=== PATIENT | male | born 1955 | race Caucasian/White ===

== ENCOUNTER → 2017-01-19 | Outpatient (CLI) | payer SELFPAY ==
[2017-01-19 09:44] LABS: ABSOLUTE EOSINOPHILS # (AUTO) 0.2 10^3/uL (0.0-0.6); ABSOLUTE LYMPHOCYTES (AUTO) 1.9 10^3/uL (0.5-4.7); ABSOLUTE MONOCYTES (AUTO) 0.7 10^3/uL (0.1-1.4); ABSOLUTE NEUT (AUTO) 4.9 10^3/uL (1.7-8.2); BASOPHILS % (AUTO) 0.5 % (0-2); HEMATOCRIT 42.1 % (37.9-51.0); HEMOGLOBIN 14.6 g/dL (13.5-17.0); HGB HCT DIFFERENCE 1.7; LYMPHOCYTES % (AUTO) 24.8 % (13-45); MEAN CORPUSCULAR HEMOGLOBIN 31.3 pg (27.0-33.4); MEAN CORPUSCULAR HGB CONC 34.6 g/dL (32.0-36.0); MEAN CORPUSCULAR VOLUME 90 fl (80-97); MONOCYTES % (AUTO) 8.7 % (3-13); RED BLOOD COUNT 4.66 10^6/uL (4.35-5.55); RED CELL DISTRIBUTION WIDTH 13.2 % (11.5-14.0); WHITE BLOOD COUNT 7.8 10^3/uL (4.0-10.5)
[2017-01-19 10:12] LABS: ALANINE AMINOTRANSFERASE 72 U/L (21-72); ALBUMIN 4.4 g/dL (3.5-5.0); ALKALINE PHOSPHATASE 76 U/L (38-126); ANION GAP 12 (5-19); ASPARTATE AMINO TRANSFERASE 59 U/L (17-59); BILIRUBIN,DIRECT 0.5 mg/dL (0.0-0.4); BILIRUBIN,TOTAL 0.7 mg/dL (0.2-1.3); BLOOD UREA NITROGEN 18 mg/dL (7-20); CALCIUM 9.5 mg/dL (8.4-10.2); CARBON DIOXIDE 29 mmol/L (22-30); CHLORIDE 99 mmol/L (98-107); CHOLESTEROL 167.65 mg/dL (0-200); CREATININE RESULT 0.87 mg/dL (0.52-1.25); Direct HDL 41 mg/dL (>40); GLUCOSE 131 mg/dL (75-110); POTASSIUM 4.1 mmol/L (3.6-5.0); SODIUM 139.5 mmol/L (137-145); TOTAL PROTEIN 7.5 g/dL (6.3-8.2); TRIGLYCERIDES 280 mg/dL (<150)
[2017-01-19 10:23] LABS: DIRECT LDL 79 mg/dL (<100)
--- NOTE | 2017-01-19 13:45 | EKG REPORT ---
SEVERITY:- NORMAL ECG - SINUS RHYTHM : Confirmed by: Peng Pérez MD 19-Jan-2017 13:44:46
== END ==
LOC: OD 08:22
PROVIDERS: ATTEND Nurse Practitioner
DX: I10 Essential (primary) hypertension (principal); E78.2 Mixed hyperlipidemia; R73.09 Other abnormal glucose; S81.801A Unspecified open wound, right lower leg, initial encounter; X58.XXXA Exposure to other specified factors, initial encounter; Y93.9 Activity, unspecified; Y92.9 Unspecified place or not applicable
CPT/HCPCS: 36415; 80053; 80061; 83036; 84443; 85025; 93005; 93010

== ENCOUNTER 2018-10-27 12:44 | Inpatient (IN) | payer SELFPAY ==
--- NOTE | 2018-10-27 13:12 | ER Document Report ---
ED Medical Screen (RME) - General Chief Complaint: Abnormal Lab Results Stated Complaint: ABNORMAL LABS Time Seen by Provider: 10/27/18 13:06 Primary Care Provider: ROCK CLEANING NP-C [Primary Care Provider] - Follow up as needed TRAVEL OUTSIDE OF THE [place] IN LAST 30 DAYS: No - HPI Notes: 10/27/18 13:10 Patient is a 62-year-old male with a history of hypertension, hyperchol esterolemia, gout, GERD who presents complaining of generalized bruising without precipitating event and occasional dizziness. Patient was sent by his family doctor after noticing a platelet count of 4000. He otherwise is feeling well and has been eating and drinking without difficulty. He is urinating normally and having normal bowel movements. No melena or hematochezia. Denies HIGGINS, fever, neck pain, URI, CP, SOB, Abd pain, or rash. I have treated and performed a rapid initial assessment of this patient. A comprehensive ED assessment and evaluation of the patient, analysis of test results and completion of medical decision making process will be conducted by additional ED providers. PHYSICAL EXAMINATION: GENERAL: Well-appearing, well-nourished and in no acute distress. A&Ox4. An swers questions appropriately. LUNGS: Breath sounds clear to auscultation bilaterally and equal. No wheezes rales or rhonchi. HEART: Regular rate and rhythm without murmurs, rubs, gallops. Skin: generalized ecchymosis noted. - Related Data Allergies/Adverse Reactions: Sulfa (Sulfonamide Antibiotics) Allergy (Verified 10/27/18 12:59) Past Medical History Renal/ Medical History: Denies: Hx Peritoneal Dialysis Physical Exam - Vital signs Vitals: Temp Pulse Resp BP Pulse Ox 98.3 F 90 16 147/76 H 98 10/27/18 12:54 10/27/18 12:54 10/27/18 12:54 10/27/18 12:54 10/27/18 12:54 Course - Vital Signs Vital signs: Temp Pulse Resp BP Pulse Ox 98.3 F 90 16 147/76 H 98 10/27/18 12:54 10/27/18 12:54 10/27/18 12:54 10/27/18 12:54 10/27/18 12:54 Doctor's Discharge - Discharge Referrals: BLACK,ROCK, [employer]IMBER-C [Primary Care Provider] - Follow up as needed
--- NOTE | 2018-10-27 13:48 | ER Document Report ---
ED General - General Chief Complaint: Abnormal Lab Results Stated Complaint: ABNORMAL LABS Time Seen by Provider: 10/27/18 13:06 Notes: 62-year-old male to the emergency department chief complaint of low platelet count. Patient is a has been having increased bruises for the last several months. Taking large amounts of ibuprofen for his knee pain. Went to see a regular doctor and they did outpatient labs and referred him here for a panic low platelet count. Patient states that he has not hit his head. Does have some dizziness though. Denies any abdominal pain. Does have some intermittent blood in the stool. Possible blood in the urine. TRAVEL OUTSIDE OF THE [place] IN LAST 30 DAYS: No - HPI Onset/Duration: Gradual Quality of pain: No pain Severity: Mild Pain Level: Denies - Related Data Allergies/Adverse Reactions: Sulfa (Sulfonamide Antibiotics) Allergy (Verified 10/27/18 12:59) Past Medical History - General Information source: Patient - Social History Smoking Status: Unknown if Ever Smoked Frequency of alcohol use: Heavy Drug Abuse: None Lives with: Spouse/Significant other Family History: Reviewed & Not Pertinent Patient has suicidal ideation: No Patient has homicidal ideation: No - Medical History Notes: Hypertension Renal/ Medical History: Denies: Hx Peritoneal Dialysis Review of Systems - Review of Systems Notes: Constitutional: denies: Chills, Diaphoresis, Fever, Malaise, Weakness EENT: denies: Eye discharge, Blurred vision, Tearing, Double vision, Nose congestion, Nose discharge, Throat swelling, Mouth pain Cardiovascular: denies: Palpitations, Heart racing, Orthopnea, Dyspnea, Chest pain Respiratory: denies: Cough, Hurts to breathe, Wheezing, Shortness of breath Gastrointestinal: denies: Abdominal pain, Diarrhea, Nausea, Vomiting, Black stools, bright red blood in stool Genitourinary: denies: Burning, Dysuria, Discharge, Frequency, Flank pain, Hematuria Musculoskeletal: denies: Joint pain, Joint swelling, Muscle pain, Muscle stiffness, back pain Hematologic/Lymphatic: Complaining of increased bruising, easy bleeding, possible low platelets. Neurological/Psychological: denies: Confusion, Dementia, Depression, Loss of consciousness. Some dizziness. Skin: No lesions, no masses, no skin breakdown, no abscesses Physical Exam - Vital signs Vitals: Temp Pulse Resp BP Pulse Ox 98.3 F 90 16 147/76 H 98 10/27/18 12:54 10/27/18 12:54 10/27/18 12:54 10/27/18 12:54 10/27/18 12:54 Interpretation: Normal - General General appearance: Appears well, Alert - HEENT Head: Normocephalic, Atraumatic Eyes: Normal Pupils: PERRL - Respiratory Respiratory status: No respiratory distress Chest status: Nontender Breath sounds: Normal Chest palpation: Normal - Cardiovascular Rhythm: Regular Heart sounds: Normal auscultation Murmur: No - Abdominal Inspection: Normal Distension: No distension Bowel sounds: Normal Tenderness: Nontender Organomegaly: No organomegaly - Back Back: Normal, Nontender - Extremities General upper extremity: Normal inspection, Nontender, Normal color, Normal ROM, Normal temperature General lower extremity: Normal inspection, Nontender, Normal color, Normal ROM, Normal temperature, Normal weight bearing. No: Cholo's sign - Neurological Neuro grossly intact: Yes Cognition: Normal Orientation: AAOx4 Shakir Coma Scale Eye Opening: Spontaneous Shakir Coma Scale Verbal: Oriented [place] Coma Scale Motor: Obeys Commands Shakir Coma Scale Total: 15 Speech: Normal Motor strength normal: LUE, RUE, LLE, RLE Sensory: Normal - Psychological Associated symptoms: Normal affect, Normal mood - Skin Skin Temperature: Warm Skin Moisture: Dry Skin Color: Other - Patient has several petechiae on the lower extremities. Lots of bruises on the arms. Few bruises on the chest and abdomen. Course - Re-evaluation Re-evalutation: 10/27/18 15:39 Laboratory 10/27/18 10/27/18 10/27/18 13:50 13:50 13:50 WBC 10.1 RBC 4.77 Hgb 13.9 Hct 41.2 MCV 86 MCH 29.1 MCHC 33.7 RDW 13.6 Plt Count 4 L* Seg Neutrophils % 77.8 Lymphocytes % 15.6 Monocytes % 5.5 Eosinophils % 0.5 Basophils % 0.6 Absolute Neutrophils 7.9 Absolute Lymphocytes 1.6 Absolute Monocytes 0.6 Absolute Eosinophils 0.1 Absolute Basophils 0.1 PT 12.9 INR 0.93 APTT 26.2 Sodium 139.6 Potassium 4.1 Chloride 101 Carbon Dioxide 24 Anion Gap 15 BUN 21 H Creatinine 0.93 Est GFR ( Amer) > 60 Est GFR (Non-Af Amer) > 60 Glucose 105 Hemoglobin A1c % Calcium 9.4 Total Bilirubin 0.8 Direct Bilirubin 0.3 Neonat Total Bilirubin Not Reportable Neonat Direct Bilirubin Not Reportable Neonat Indirect Bili Not Reportable AST 26 ALT 31 Alkaline Phosphatase 87 Total Protein 7.2 Albumin 4.4 Urine Color Urine Appearance Urine pH Ur Specific [place] Urine Protein Urine Glucose (UA) Urine Ketones Urine Blood Urine Nitrite Urine Bilirubin Urine Urobilinogen Ur Leukocyte Esterase Urine WBC (Auto) Urine RBC (Auto) U Hyaline Cast (Auto) Urine Mucus (Auto) Urine Ascorbic Acid Blood Type Antibody Screen 10/27/18 10/27/18 10/27/18 13:50 13:50 13:50 WBC RBC Hgb Hct MCV MCH MCHC RDW Plt Count Seg Neutrophils % Lymphocytes % Monocytes % Eosinophils % Basophils % Absolute Neutrophils Absolute Lymphocytes Absolute Monocytes Absolute Eosinophils Absolute Basophils PT INR APTT Sodium Potassium Chloride Carbon Dioxide Anion Gap BUN Creatinine Est GFR ( Amer) Est GFR (Non-Af Amer) Glucose Hemoglobin A1c % 5.2 Calcium Total Bilirubin Direct Bilirubin Neonat Total Bilirubin Neonat Direct Bilirubin Neonat Indirect Bili AST ALT Alkaline Phosphatase Total Protein Albumin Urine Color YELLOW Urine Appearance CLEAR Urine pH 5.0 Ur Specific [place] 1.017 Urine Protein NEGATIVE Urine Glucose (UA) NEGATIVE Urine Ketones NEGATIVE Urine Blood MODERATE H Urine Nitrite NEGATIVE Urine Bilirubin NEGATIVE Urine Urobilinogen NEGATIVE Ur Leukocyte Esterase NEGATIVE Urine WBC (Auto) 1 Urine RBC (Auto) 9 U Hyaline Cast (Auto) 1 Urine Mucus (Auto) FEW Urine Ascorbic Acid NEGATIVE Blood Type A POSITIVE Antibody Screen NEGATIVE Head CT 10/27/18 14:36 IMPRESSION: No acute intracranial pathology. EVIDENCE OF ACUTE STROKE: NO. I have spoken to the educational advisor and he thinks patient should be admitted to the hospital for IV steroids. 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 Patient should respond well to IV Solu-Medrol. Hematology will continue to follow. Will consult with hospitalist for admission at this time. - Vital Signs Vital signs: Temp Pulse Resp BP Pulse Ox 98.3 F 90 21 H 128/68 H 98 10/27/18 12:54 10/27/18 12:54 10/27/18 14:00 10/27/18 13:50 10/27/18 14:00 - Laboratory Result Diagrams: 10/27/18 13:50 10/27/18 13:50 Laboratory results interpreted by me: 10/27/18 10/27/18 10/27/18 13:50 13:50 13:50 Plt Count 4 L* BUN 21 H Urine Blood MODERATE H Discharge - Discharge Clinical Impression: Acute ITP Condition: Good Disposition: ADMITTED INPATIENT Admitting Provider: Saundra (Hospitalist) Unit Admitted: Medical Floor
[2018-10-27 14:14] LABS: ABSOLUTE BASOPHILS # (AUTO) 0.1 10^3/uL (0.0-0.2); ABSOLUTE EOSINOPHILS # (AUTO) 0.1 10^3/uL (0.0-0.6); ABSOLUTE LYMPHOCYTES (AUTO) 1.6 10^3/uL (0.5-4.7); ABSOLUTE MONOCYTES (AUTO) 0.6 10^3/uL (0.1-1.4); ABSOLUTE NEUT (AUTO) 7.9 10^3/uL (1.7-8.2); BASOPHILS % (AUTO) 0.6 % (0-2); EOSINOPHILS % (AUTO) 0.5 % (0-6); HEMATOCRIT 41.2 % (37.9-51.0); HEMOGLOBIN 13.9 g/dL (13.5-17.0); LYMPHOCYTES % (AUTO) 15.6 % (13-45); MEAN CORPUSCULAR HEMOGLOBIN 29.1 pg (27.0-33.4); MEAN CORPUSCULAR HGB CONC 33.7 g/dL (32.0-36.0); MEAN CORPUSCULAR VOLUME 86 fl (80-97); MONOCYTES % (AUTO) 5.5 % (3-13); RED BLOOD COUNT 4.77 10^6/uL (4.35-5.55); RED CELL DISTRIBUTION WIDTH 13.6 % (11.5-14.0); SEGMENTED NEUTROPHILS % (AUTO) 77.8 % (42-78); TOTAL CELLS COUNTED % (AUTO) 100 %; WHITE BLOOD COUNT 10.1 10^3/uL (4.0-10.5)
[2018-10-27 14:16] LABS: APPEARANCE,URINE CLEAR; BILIRUBIN,URINE NEGATIVE (NEGATIVE); COLOR,URINE YELLOW; GLUCOSE, URINE NEGATIVE (NEGATIVE); INTERNATIONAL RATION (INR) 0.93; KETONES,URINE NEGATIVE (NEGATIVE); LEUKOCYTE ESTERASE,URINE NEGATIVE (NEGATIVE); NITRITE,URINE NEGATIVE (NEGATIVE); PROTEIN,URINE NEGATIVE (NEGATIVE); PROTHROMBIN TIME 12.9 SEC (11.4-15.4); URINE SPECIFIC GRAVITY 1.017; UROBILINOGEN,URINE NEGATIVE mg/dL (<2.0)
[2018-10-27 14:24] LABS: PARTIAL THROMBOPLASTIN TIME 26.2 SEC (23.5-35.8)
[2018-10-27 14:26] LABS: ALANINE AMINOTRANSFERASE 31 U/L (21-72); ALBUMIN 4.4 g/dL (3.5-5.0); ALKALINE PHOSPHATASE 87 U/L (38-126); ANION GAP 15 (5-19); ASPARTATE AMINO TRANSFERASE 26 U/L (17-59); BILIRUBIN,DIRECT 0.3 mg/dL (0.0-0.4); BILIRUBIN,TOTAL 0.8 mg/dL (0.2-1.3); BLOOD UREA NITROGEN 21 mg/dL (7-20); CALCIUM 9.4 mg/dL (8.4-10.2); CARBON DIOXIDE 24 mmol/L (22-30); CHLORIDE 101 mmol/L (98-107); GLUCOSE 105 mg/dL (75-110); POTASSIUM 4.1 mmol/L (3.6-5.0); SODIUM 139.6 mmol/L (137-145); TOTAL PROTEIN 7.2 g/dL (6.3-8.2)
[2018-10-27 14:52] LABS: PLATELET COUNT 4 10^3/uL (150-450)
--- NOTE | 2018-10-27 15:08 | RADIOLOGY REPORT (SQ) ---
EXAM DESCRIPTION: CT HEAD WITHOUT COMPLETED DATE/TIME: 10/27/2018 2:59 pm REASON FOR STUDY: Dizziness with thrombocytopenia COMPARISON: None. TECHNIQUE: Axial images acquired through the brain without intravenous contrast. Images reviewed wi th bone, brain and subdural windows. Additional sagittal and coronal reconstructions were generated. Images stored on PACS. All CT scanners at this facility use dose modulation, iterative reconstruction, and/or weight based d osing when appropriate to reduce radiation dose to as low as reasonably achievable (ALARA). [facility]: Dose Right [facility]: CareDose [facility]: Dose Right [facility]: Teradose 4D [facility]: Smart Dash RADIATION DOSE: CT Rad equipment meets quality standard of care and radiation dose reduction techniq ues were employed. CTDIvol: 53.2 mGy. DLP: 1044 mGy-cm. mGy. LIMITATIONS: None. FINDINGS: VENTRICLES: Normal size and contour. CEREBRUM: No masses. No hemorrhage. No midline shift. No evidence for acute infarction. Normal gra y/white matter differentiation. No areas of low density in the white matter. CEREBELLUM: No masses. No hemorrhage. No alteration of density. No evidence for acute infarction. EXTRAAXIAL SPACES: No fluid collections. No masses. ORBITS AND GLOBE: No intra- or extraconal masses. Normal contour of globe without masses. CALVARIUM: No fracture. PARANASAL SINUSES: No fluid or mucosal thickening. SOFT TISSUES: No mass or hematoma. OTHER: No other significant finding. IMPRESSION: No acute intracranial pathology. EVIDENCE OF ACUTE STROKE: NO. COMMENT: Quality ID # [id number]: Final reports with documentation of one or more dose reduction techniques (e.g., Automated exposure control, adjustment of the mA and/or kV according to patient size, use of iterative reconstruction technique) TECHNICAL DOCUMENTATION: JOB ID: [id number] [employer] All Rights Reserved Reading location - IP/workstation name: [email or web address]
[2018-10-27] MEDS ORDERED: ALBUTEROL SULFATE 0.083% NEB 2.5 MG/3 ML AMPUL NEB PRN (16:58)
[2018-10-27] MEDS ORDERED: ACETAMINOPHEN 325 MG TABLET PO PRN (16:58)
[2018-10-27] MEDS ORDERED: MAG HYDROX/AL HYDROX/SIMETH SUSP 30 ML UDCUP PO PRN (16:58)
[2018-10-27] MEDS ORDERED: ONDANSETRON HCL INJ/PF 4 MG/2 ML SDV IV PRN (16:58)
[2018-10-27] MEDS ORDERED: MAGNESIUM HYDROXIDE SUSP 30 ML UDCUP PO PRN (16:58)
[2018-10-27] MEDS ORDERED: DIAZEPAM 5 MG TABLET PO PRN (17:03)
[2018-10-27] MEDS ORDERED: HYDRALAZINE HCL INJ/PF 20 MG/1 ML SDV IV PRN (17:03)
[2018-10-27] MEDS: METHYLPREDNISOLONE INJ 125 MG/2 ML SDV IV SCH ×2 (17:07→18:14)
--- NOTE | 2018-10-27 17:23 | PDOC H&P ---
History of Present Illness Admission Date/PCP: 10/27/18 15:59 MICHEAL MONACO Patient complains of: abdnormal labs History of Present Illness: CRISTIAN BOYD is a 62 year old male with a past medical history of hypertension, hyperlipidemia, GERD, gout, obesity, and alcohol dependence who presents to the emergency department today with report of abnormal labs; patient had routine lab work drawn at his primary care provider's office. He was contacted today and told to report to the emergency department due to low platelets. On presentation to the emergency department the patient was found to have stable vital signs, Hemoglobin 13.9/hematocrit 41.2, and platelet count of 4 (platelet count at PCP office 5, repeat 4), normal coags, unremarkable chemistry, and urinalysis positive for moderate blood. Head CT is benign. Emergency department provider spoke with Dr. Estrada who advised against platelet transfusion at this time as this can paradoxically worsen ITP; instead advises Solu-Medrol 60 mg twice daily. Patient is referred to the hospitalist service for admission and management of the above-stated complaints with hematology consulting. Past Medical History Cardiac Medical History: Reports: Hyperlipidema, Hypertension Denies: Coronary Artery Disease, Myocardial Infarction Pulmonary Medical History: Reports: None EENT Medical History: Reports: None Neurological Medical History: Reports: None Endocrine Medical History: Reports: Obesity Renal/ Medical History: Reports: None Malignancy Medical History: Reports: None GI Medical History: Reports: Gastroesophageal Reflux Disease Musculoskeltal Medical History: Reports: Gout Skin Medical History: Reports: None Psychiatric Medical History: Reports: Alcohol Dependency Traumatic Medical History: Reports: None Hematology: Reports: None Infectious Medical History: Reports: None Past Surgical History Past Surgical History: Reports: Cholecystectomy Social History Information Source: Patient Lives with: Spouse/Significant other Smoking Status: Never Smoker Frequency of Alcohol Use: Heavy Hx Recreational Drug Use: No Drugs: None Hx Prescription Drug Abuse: No - Advance Directive Resuscitation Status: Full Code Surrogate healthcare decision maker:: Patient's . Family History Family History: Reviewed & Not Pertinent, Malignancy - : Parental Family History Reviewed: Yes Children Family History Reviewed: Yes Sibling(s) Family History Reviewed.: Yes Medication/Allergy Allergies/Adverse Reactions: Sulfa (Sulfonamide Antibiotics) Allergy (Verified 10/27/18 12:59) Review of Systems Constitutional: ABSENT: chills, fever(s), headache(s), weight gain, weight loss Eyes: ABSENT: visual disturbances Ears: ABSENT: hearing changes Cardiovascular: ABSENT: chest pain, dyspnea on exertion, edema, orthropnea, palpitations Respiratory: ABSENT: cough, hemoptysis Gastrointestinal: ABSENT: abdominal pain, constipation, diarrhea, hematemesis, hematochezia, nausea, vomiting Genitourinary: ABSENT: dysuria, hematuria Musculoskeletal: ABSENT: joint swelling Integumentary: PRESENT: other - Easily bruises. ABSENT: rash, wounds Neurological: ABSENT: abnormal gait, abnormal speech, confusion, dizziness, focal weakness, syncope Psychiatric: ABSENT: anxiety, depression, homidical ideation, suicidal ideation Endocrine: ABSENT: cold intolerance, heat intolerance, polydipsia, polyuria Hematologic/Lymphatic: ABSENT: easy bleeding, easy bruising Physical Exam Vital Signs: Temp Pulse Resp BP Pulse Ox 98.1 F 90 19 120/83 97 10/27/18 16:58 10/27/18 12:54 10/27/18 16:58 10/27/18 16:58 10/27/18 16:58 Intake & Output 10/26/18 10/27/18 10/28/18 06:59 06:59 06:59 Weight 120.9 kg General appearance: PRESENT: no acute distress, cooperative - Pleasant, morbidly obese, well-developed, well-nourished Head exam: PRESENT: atraumatic, normocephalic Eye exam: PRESENT: conjunctiva pink, EOMI, PERRLA. ABSENT: scleral icterus Ear exam: PRESENT: normal external ear exam Mouth exam: PRESENT: moist, tongue midline Neck exam: ABSENT: carotid bruit, JVD, lymphadenopathy, thyromegaly Respiratory exam: PRESENT: clear to auscultation samantha, symmetrical, unlabored. ABSENT: rales, rhonchi, wheezes Cardiovascular exam: PRESENT: RRR, +S1, +S2. ABSENT: diastolic murmur, rubs, systolic murmur Pulses: PRESENT: normal dorsalis pedis pul Vascular exam: PRESENT: normal capillary refill GI/Abdominal exam: PRESENT: normal bowel sounds, soft. ABSENT: distended, guard ing, mass, organolmegaly, rebound, tenderness Rectal exam: PRESENT: deferred Extremities exam: PRESENT: full ROM. ABSENT: calf tenderness, clubbing, pedal edema Neurological exam: PRESENT: alert, awake, oriented to person, oriented to place, oriented to time, oriented to situation, CN II-XII grossly intact. ABSENT: motor sensory deficit Psychiatric exam: PRESENT: appropriate affect, normal mood. ABSENT: homicidal ideation, suicidal ideation Skin exam: PRESENT: dry, intact, warm, other - Scattered petechia and ecchymosis to all extremities; none noted to trunk or back. ABSENT: cyanosis, rash Results Laboratory Results: 10/27/18 13:50 10/27/18 13:50 10/27/18 10/27/18 10/27/18 13:50 13:50 13:50 WBC 10.1 RBC 4.77 Hgb 13.9 Hct 41.2 MCV 86 MCH 29.1 MCHC 33.7 RDW 13.6 Plt Count 4 L* Seg Neutrophils % 77.8 Lymphocytes % 15.6 Monocytes % 5.5 Eosinophils % 0.5 Basophils % 0.6 Absolute Neutrophils 7.9 Absolute Lymphocytes 1.6 Absolute Monocytes 0.6 Absolute Eosinophils 0.1 Absolute Basophils 0.1 Sodium 139.6 Potassium 4.1 Chloride 101 Carbon Dioxide 24 Anion Gap 15 BUN 21 H Creatinine 0.93 Est GFR ( Amer) > 60 Est GFR (Non-Af Amer) > 60 Glucose 105 Calcium 9.4 Total Bilirubin 0.8 AST 26 ALT 31 Alkaline Phosphatase 87 Total Protein 7.2 Albumin 4.4 Urine Color Urine Appearance Urine pH Ur Specific [place] Urine Protein Urine Glucose (UA) Urine Ketones Urine Blood Urine Nitrite Ur Leukocyte Esterase Urine WBC (Auto) Urine RBC (Auto) Blood Type A POSITIVE Antibody Screen NEGATIVE 10/27/18 13:50 WBC RBC Hgb Hct MCV MCH MCHC RDW Plt Count Seg Neutrophils % Lymphocytes % Monocytes % Eosinophils % Basophils % Absolute Neutrophils Absolute Lymphocytes Absolute Monocytes Absolute Eosinophils Absolute Basophils Sodium Potassium Chloride Carbon Dioxide Anion Gap BUN Creatinine Est GFR ( Amer) Est GFR (Non-Af Amer) Glucose Calcium Total Bilirubin AST ALT Alkaline Phosphatase Total Protein Albumin Urine Color YELLOW Urine Appearance CLEAR Urine pH 5.0 Ur Specific [place] 1.017 Urine Protein NEGATIVE Urine Glucose (UA) NEGATIVE Urine Ketones NEGATIVE Urine Blood MODERATE H Urine Nitrite NEGATIVE Ur Leukocyte Esterase NEGATIVE Urine WBC (Auto) 1 Urine RBC (Auto) 9 Blood Type Antibody Screen Impressions: Head CT 10/27/18 14:36 IMPRESSION: No acute intracranial pathology. EVIDENCE OF ACUTE STROKE: NO. Assessment and Plan - Diagnosis (1) Acute ITP Is this a current diagnosis for this admission?: Yes Plan: The patient is admitted to the medical floor on fall precautions; advised bed rest with commode privileges. Patient is asked to notify staff prior to getting out of bed so that they can be present in case of need for assistance. Hematology is consulted; appreciate Dr. Estrada's assistance. Begin IV Solu-Medrol 60 mg twice daily. Transfuse for active bleeding; patient has been typed and screened. (2) Thrombocytopenia Is this a current diagnosis for this admission?: Yes Plan: Secondary #1; management as above. (3) Hypertension Qualifiers: Hypertension type: essential hypertension Qualified Code(s): I10 - Essential (primary) hypertension Is this a current diagnosis for this admission?: Yes Plan: Patient endorses a history of hypertension. Cardiac diet. We will resume home medication regiment once reconciled. IV hydralazine as needed for blood pressure control. (4) Hyperlipidemia Is this a current diagnosis for this admission?: Yes Plan: Patient endorses history of hyperlipidemia. Cardiac diet. Resume home atorvastatin once reconciled. (5) Alcohol dependence Qualifiers: Substance use status: uncomplicated Qualified Code(s): F10.20 - Alcohol dependence, uncomplicated Is this a current diagnosis for this admission?: Yes Plan: Patient reports that he drinks 2 tumblers of whiskey daily. He denies any history of withdrawal. He declines to be provided beer. Will place on multivitamin, folic acid, and thiamine supplement. P.o. Valium as needed for anxiety/agitation/withdrawal symptoms. - Time Time Spent with patient: 35 or more minutes Medications reviewed and adjusted accordingly: Yes Anticipated discharge: Home
[2018-10-27] MEDS: TEMAZEPAM 7.5 MG CAPSULE PO SCH (21:41)
[2018-10-28 05:27] LABS: HEMATOCRIT 40.6 % (37.9-51.0); HEMOGLOBIN 13.7 g/dL (13.5-17.0); MEAN CORPUSCULAR HEMOGLOBIN 29.1 pg (27.0-33.4); MEAN CORPUSCULAR HGB CONC 33.8 g/dL (32.0-36.0); MEAN CORPUSCULAR VOLUME 86 fl (80-97); RED BLOOD COUNT 4.71 10^6/uL (4.35-5.55); RED CELL DISTRIBUTION WIDTH 13.3 % (11.5-14.0); WHITE BLOOD COUNT 8.8 10^3/uL (4.0-10.5)
[2018-10-28 05:53] LABS: PLATELET COUNT 7 10^3/uL (150-450)
[2018-10-28] MEDS: PANTOPRAZOLE SODIUM 20 MG TABLET.DR PO SCH (05:56)
[2018-10-28] MEDS: DOCUSATE SODIUM 100 MG CAPSULE PO SCH (10:09)
[2018-10-28] MEDS: MULTIVITAMIN TABLET PO SCH (10:10)
[2018-10-28] MEDS: LISINOPRIL 10 MG TABLET PO SCH (10:11)
[2018-10-28] MEDS: METHYLPREDNISOLONE INJ 125 MG/2 ML SDV IV SCH ×3 (10:11→17:12)
[2018-10-28] MEDS: THIAMINE HCL 100 MG TABLET PO SCH (10:11)
[2018-10-28] MEDS: FOLIC ACID 1 MG TABLET PO SCH (10:11)
--- NOTE | 2018-10-28 10:37 | PDOC PROGRESS REPORT ---
Subjective Progress Note for:: 10/28/18 Subjective:: This is 62 years old male patient with past medical history of hypertension, hyperlipidemia, morbid obesity and alcohol dependence referred from his PCP office for abnormal lab. His blood drawn for routine basic lab work revealed platelet count of 4. Patient denies any GI bleeding no hematuria. But he has intermittent bleeding under his skin. On examination he also has large ecchymosis over his left deltoid area. His other blood elements are within normal limits. His platelet count slightly increased to 7. Patient has been on Solu-Medrol. Dr. Hall is going to evaluate him. Reason For Visit: THROMBOCYTOPENIA Physical Exam Vital Signs: Temp Pulse Resp BP Pulse Ox 98.6 F 76 17 122/55 L 98 10/28/18 00:00 10/28/18 00:00 10/28/18 00:00 10/28/18 00:00 10/28/18 09:32 Intake & Output 10/27/18 10/28/18 10/29/18 06:59 06:59 06:59 Weight 123 kg General appearance: PRESENT: morbidly obese Head exam: PRESENT: atraumatic, normocephalic Eye exam: PRESENT: conjunctiva pink, EOMI, PERRLA. ABSENT: scleral icterus Ear exam: PRESENT: normal external ear exam Mouth exam: PRESENT: moist, tongue midline Neck exam: ABSENT: carotid bruit, JVD, lymphadenopathy, thyromegaly Respiratory exam: PRESENT: clear to auscultation samantha. ABSENT: rales, rhonchi, wheezes Cardiovascular exam: PRESENT: RRR. ABSENT: diastolic murmur, rubs, systolic murmur Pulses: PRESENT: normal dorsalis pedis pul Vascular exam: PRESENT: normal capillary refill GI/Abdominal exam: PRESENT: normal bowel sounds, soft. ABSENT: distended, guarding, mass, organolmegaly, rebound, tenderness Rectal exam: PRESENT: deferred Extremities exam: PRESENT: full ROM. ABSENT: calf tenderness, clubbing, pedal edema Neurological exam: PRESENT: alert, awake, oriented to person, oriented to place, oriented to time, oriented to situation, CN II-XII grossly intact. ABSENT: motor sensory deficit Psychiatric exam: PRESENT: appropriate affect, normal mood. ABSENT: homicidal ideation, suicidal ideation Skin exam: PRESENT: dry, intact, warm. ABSENT: cyanosis, rash Results Laboratory Results: 10/28/18 05:10 10/27/18 13:50 10/27/18 10/27/18 10/27/18 13:50 13:50 13:50 WBC 10.1 RBC 4.77 Hgb 13.9 Hct 41.2 MCV 86 MCH 29.1 MCHC 33.7 RDW 13.6 Plt Count 4 L* Seg Neutrophils % 77.8 Lymphocytes % 15.6 Monocytes % 5.5 Eosinophils % 0.5 Basophils % 0.6 Absolute Neutrophils 7.9 Absolute Lymphocytes 1.6 Absolute Monocytes 0.6 Absolute Eosinophils 0.1 Absolute Basophils 0.1 Sodium 139.6 Potassium 4.1 Chloride 101 Carbon Dioxide 24 Anion Gap 15 BUN 21 H Creatinine 0.93 Est GFR ( Amer) > 60 Est GFR (Non-Af Amer) > 60 Glucose 105 Calcium 9.4 Total Bilirubin 0.8 AST 26 ALT 31 Alkaline Phosphatase 87 Total Protein 7.2 Albumin 4.4 Urine Color Urine Appearance Urine pH Ur Specific [place] Urine Protein Urine Glucose (UA) Urine Ketones Urine Blood Urine Nitrite Ur Leukocyte Esterase Urine WBC (Auto) Urine RBC (Auto) Blood Type A POSITIVE Antibody Screen NEGATIVE 10/27/18 10/28/18 13:50 05:10 WBC 8.8 RBC 4.71 Hgb 13.7 Hct 40.6 MCV 86 MCH 29.1 MCHC 33.8 RDW 13.3 Plt Count 7 L* Seg Neutrophils % Lymphocytes % Monocytes % Eosinophils % Basophils % Absolute Neutrophils Absolute Lymphocytes Absolute Monocytes Absolute Eosinophils Absolute Basophils Sodium Potassium Chloride Carbon Dioxide Anion Gap BUN Creatinine Est GFR ( Amer) Est GFR (Non-Af Amer) Glucose Calcium Total Bilirubin AST ALT Alkaline Phosphatase Total Protein Albumin Urine Color YELLOW Urine Appearance CLEAR Urine pH 5.0 Ur Specific [place] 1.017 Urine Protein NEGATIVE Urine Glucose (UA) NEGATIVE Urine Ketones NEGATIVE Urine Blood MODERATE H Urine Nitrite NEGATIVE Ur Leukocyte Esterase NEGATIVE Urine WBC (Auto) 1 Urine RBC (Auto) 9 Blood Type Antibody Screen Impressions: Head CT 10/27/18 14:36 IMPRESSION: No acute intracranial pathology. EVIDENCE OF ACUTE STROKE: NO. Assessment and Plan - Diagnosis (1) Idiopathic thrombocytopenia Is this a current diagnosis for this admission?: Yes Plan: Most probably acute thrombocytopenia. Platelet count in February 2018 was 200,000. (2) Hypertension Qualifiers: Hypertension type: essential hypertension Qualified Code(s): I10 - Essential (primary) hypertension Is this a current diagnosis for this admission?: Yes Plan: I will review this medication and adjust accordingly. (3) Hyperlipidemia Qualifiers: Hyperlipidemia type: unspecified Qualified Code(s): E78.5 - Hyperlipidemia, unspecified Is this a current diagnosis for this admission?: Yes Plan: I will check his lipid panel. (4) Morbid obesity Is this a current diagnosis for this admission?: Yes Plan: Patient encouraged and counseled to do lifestyle modifications and form of h ealthy diet regular exercise and weight loss and he voiced agreement.
[2018-10-28] MEDS ORDERED: (PENDING PHARMACY ID) (Lisinopril [Prinivil] 20 MG) PO SCH (10:45)
[2018-10-28] MEDS: HYDROCHLOROTHIAZIDE 25 MG TABLET PO SCH (11:12)
[2018-10-28] MEDS: METOPROLOL SUCCINATE 25 MG TAB.SR.24H PO SCH (11:12)
--- NOTE | 2018-10-28 11:19 | PDOC CONSULTATION ---
Consultation Consult Date: 10/28/18 Attending physician:: MÓNICA SANDY Provider Consulted: KAELYN ARGUETA Consult reason:: Thrombocytopenia History of Present Illness Admission Date/PCP: 10/27/18 15:59 MICHEAL MONACO Patient complains of: Bruising, petechia History of Present Illness: CRISTIAN BOYD is a 62 year old male with several month history of bruising and petechiae, ultimately patient went to his PCP who did CBC ended up with platelet count of 11. Patient was recommended to come to the ED. Here his platelet count was 4. I was called about him and recommended that he be admitted to [facility] with initiation of high-dose steroids. He has been on Solu-Medrol 60 mg twice daily which would be equivalent of 1 mg/kg of oral prednisone. Today's pill count is 7. He is not having active bleeding although he did complain of some hematochezia over the last few months. He is fatigued. Of note, he tells me he is borderline diabetic. Therefore I initiated Accu-Cheks to start tomorrow. Past Medical History Cardiac Medical History: Reports: Hyperlipidema, Hypertension Denies: Coronary Artery Disease, Myocardial Infarction Pulmonary Medical History: Reports: None EENT Medical History: Reports: None Neurological Medical History: Reports: None Endocrine Medical History: Reports: Obesity Renal/ Medical History: Reports: None Malignancy Medical History: Reports: None GI Medical History: Reports: Gastroesophageal Reflux Disease Musculoskeltal Medical History: Reports: Gout Skin Medical History: Reports: None Psychiatric Medical History: Reports: Alcohol Dependency Denies: Depression Traumatic Medical History: Reports: None Hematology: Reports: None Infectious Medical History: Reports: None Past Surgical History Past Surgical History: Reports: Cholecystectomy Social History Information Source: Patient Lives with: Spouse/Significant other Smoking Status: Never Smoker Frequency of Alcohol Use: Heavy Hx Recreational Drug Use: No Drugs: None Hx Prescription Drug Abuse: No - Advance Directive Resuscitation Status: Full Code Family History Family History: Reviewed & Not Pertinent, Malignancy - : Parental Family History Reviewed: Yes Children Family History Reviewed: Yes Sibling(s) Family History Reviewed.: Yes Medication/Allergy Home Medications: Amlodipine Besylate [Norvasc 10 mg Tablet] 10 mg PO DAILY 10/27/18 Atorvastatin Calcium [Lipitor 40 mg Tablet] 40 mg PO QHS 10/27/18 Hydrochlorothiazide [Hydrodiuril 25 mg Tablet] 25 mg PO QAM 10/27/18 Indomethacin [Indocin 25 Mg Capsule] 25 mg PO DAILYP PRN 10/27/18 Lisinopril [Prinivil] 20 mg PO DAILY 10/27/18 Metoprolol Succinate [Toprol Xl] 25 mg PO DAILY 10/27/18 RX: Omeprazole 20 mg PO DAILY 10/27/18 Allergies/Adverse Reactions: Sulfa (Sulfonamide Antibiotics) Allergy (Verified 10/27/18 12:59) Review of Systems Constitutional: PRESENT: fatigue Gastrointestinal: ABSENT: abdominal pain, constipation, diarrhea, hematemesis, hematochezia, nausea, vomiting Musculoskeletal: ABSENT: joint swelling Integumentary: ABSENT: rash, wounds Neurological: ABSENT: abnormal gait, abnormal speech, confusion, dizziness, focal weakness, syncope Psychiatric: ABSENT: anxiety, depression, homidical ideation, suicidal ideation Hematologic/Lymphatic: PRESENT: easy bleeding, easy bruising Physical Exam Vital Signs: Temp Pulse Resp BP Pulse Ox 98.6 F 76 17 122/55 L 98 10/28/18 00:00 10/28/18 00:00 10/28/18 00:00 10/28/18 00:00 10/28/18 09:32 Intake & Output 10/27/18 10/28/18 10/29/18 06:59 06:59 06:59 Weight 123 kg General appearance: PRESENT: no acute distress Mouth exam: PRESENT: moist, tongue midline Neck exam: ABSENT: carotid bruit, JVD, lymphadenopathy, thyromegaly Respiratory exam: PRESENT: clear to auscultation samantha. ABSENT: rales, rhonchi, wheezes Cardiovascular exam: PRESENT: RRR. ABSENT: diastolic murmur, rubs, systolic murmur GI/Abdominal exam: PRESENT: normal bowel sounds, soft. ABSENT: distended, guarding, mass, organolmegaly, rebound, tenderness Rectal exam: PRESENT: deferred Gentrourinary exam: PRESENT: ecchymosis Neurological exam: PRESENT: alert, awake, oriented to person, oriented to place, oriented to time, oriented to situation, CN II-XII grossly intact. ABSENT: motor sensory deficit Skin exam: PRESENT: petechiae Results Laboratory Results: 10/28/18 05:10 10/27/18 13:50 10/27/18 10/27/18 10/27/18 13:50 13:50 13:50 WBC 10.1 RBC 4.77 Hgb 13.9 Hct 41.2 MCV 86 MCH 29.1 MCHC 33.7 RDW 13.6 Plt Count 4 L* Seg Neutrophils % 77.8 Lymphocytes % 15.6 Monocytes % 5.5 Eosinophils % 0.5 Basophils % 0.6 Absolute Neutrophils 7.9 Absolute Lymphocytes 1.6 Absolute Monocytes 0.6 Absolute Eosinophils 0.1 Absolute Basophils 0.1 Sodium 139.6 Potassium 4.1 Chloride 101 Carbon Dioxide 24 Anion Gap 15 BUN 21 H Creatinine 0.93 Est GFR ( Amer) > 60 Est GFR (Non-Af Amer) > 60 Glucose 105 Calcium 9.4 Total Bilirubin 0.8 AST 26 ALT 31 Alkaline Phosphatase 87 Total Protein 7.2 Albumin 4.4 Urine Color Urine Appearance Urine pH Ur Specific [place] Urine Protein Urine Glucose (UA) Urine Ketones Urine Blood Urine Nitrite Ur Leukocyte Esterase Urine WBC (Auto) Urine RBC (Auto) Blood Type A POSITIVE Antibody Screen NEGATIVE 10/27/18 10/28/18 13:50 05:10 WBC 8.8 RBC 4.71 Hgb 13.7 Hct 40.6 MCV 86 MCH 29.1 MCHC 33.8 RDW 13.3 Plt Count 7 L* Seg Neutrophils % Lymphocytes % Monocytes % Eosinophils % Basophils % Absolute Neutrophils Absolute Lymphocytes Absolute Monocytes Absolute Eosinophils Absolute Basophils Sodium Potassium Chloride Carbon Dioxide Anion Gap BUN Creatinine Est GFR ( Amer) Est GFR (Non-Af Amer) Glucose Calcium Total Bilirubin AST ALT Alkaline Phosphatase Total Protein Albumin Urine Color YELLOW Urine Appearance CLEAR Urine pH 5.0 Ur Specific [place] 1.017 Urine Protein NEGATIVE Urine Glucose (UA) NEGATIVE Urine Ketones NEGATIVE Urine Blood MODERATE H Urine Nitrite NEGATIVE Ur Leukocyte Esterase NEGATIVE Urine WBC (Auto) 1 Urine RBC (Auto) 9 Blood Type Antibody Screen Impressions: Head CT 10/27/18 14:36 IMPRESSION: No acute intracranial pathology. EVIDENCE OF ACUTE STROKE: NO. Assessment & Plan - Diagnosis (1) Acute ITP Is this a current diagnosis for this admission?: Yes Plan: Most likely acute ITP, initiated high-dose steroids. We should see an improvement in platelet count probably by Tuesday. At that time as long as its above 20 and stabilized we can discharge him home and follow his platelet counts as an outpatient. If he does respond to high-dose steroids then ultimately he will need a 1 mg/kg oral prednisone prescription for a 3-week supply to ensure we could then begin tapering once his platelet counts are above 100. He does have history of borderline diabetes so I will initiate Accu-Cheks by tomorrow to ensure that hyperglycemia does not occur. - Time Time Spent: 50 to 70 Minutes - Inpatient Certification Based on my medical assessment, after consideration of the patient's comorbidities, presenting symptoms, or acuity I expect that the services needed warrant INPATIENT care.: Yes I certify that my determination is in accordance with my understanding of Medicare's requirements for reasonable and necessary INPATIENT services [42 CFR 412.3e].: Yes Medical Necessity: Risk of Complication if Not Cared For in Hospital
[2018-10-28] MEDS ORDERED: ATORVASTATIN CALCIUM 40 MG TABLET PO SCH (22:00)
[2018-10-28] MEDS: TEMAZEPAM 7.5 MG CAPSULE PO SCH (23:05)
[2018-10-29 05:10] LABS: HEMATOCRIT 39.9 % (37.9-51.0); HEMOGLOBIN 13.3 g/dL (13.5-17.0); MEAN CORPUSCULAR HEMOGLOBIN 28.7 pg (27.0-33.4); MEAN CORPUSCULAR HGB CONC 33.4 g/dL (32.0-36.0); MEAN CORPUSCULAR VOLUME 86 fl (80-97); RED BLOOD COUNT 4.64 10^6/uL (4.35-5.55); RED CELL DISTRIBUTION WIDTH 13.4 % (11.5-14.0); WHITE BLOOD COUNT 16.9 10^3/uL (4.0-10.5)
[2018-10-29 05:50] LABS: PLATELET COUNT 24 10^3/uL (150-450)
[2018-10-29] MEDS: PANTOPRAZOLE SODIUM 20 MG TABLET.DR PO SCH (05:51)
[2018-10-29] MEDS: HYDROCHLOROTHIAZIDE 25 MG TABLET PO SCH (08:27)
[2018-10-29] MEDS: METOPROLOL SUCCINATE 25 MG TAB.SR.24H PO SCH (09:29)
[2018-10-29] MEDS: MULTIVITAMIN TABLET PO SCH (09:29)
[2018-10-29] MEDS: FOLIC ACID 1 MG TABLET PO SCH (09:29)
[2018-10-29] MEDS: LISINOPRIL 10 MG TABLET PO SCH (09:29)
[2018-10-29] MEDS: THIAMINE HCL 100 MG TABLET PO SCH (09:29)
[2018-10-29] MEDS: DOCUSATE SODIUM 100 MG CAPSULE PO SCH (09:29)
[2018-10-29] MEDS: METHYLPREDNISOLONE INJ 125 MG/2 ML SDV IV SCH (09:30)
--- NOTE | 2018-10-29 09:31 | PDOC DISCHARGE SUMMARY ---
General - Admit/Disc Date/PCP Admission Date/Primary Care Provider: 10/27/18 15:59 GUERO EMILY RODRIGUEZ-C Discharge Date: 10/29/18 - Discharge Diagnosis (1) Idiopathic thrombocytopenia Is this a current diagnosis for this admission?: Yes Summary: Acute (2) Hypertension Is this a current diagnosis for this admission?: Yes (3) Hyperlipidemia Is this a current diagnosis for this admission?: Yes (4) Morbid obesity Is this a current diagnosis for this admission?: Yes - Additional Information Resuscitation Status: Full Code Home Medications: Amlodipine Besylate [Norvasc 10 mg Tablet] 10 mg PO DAILY 10/27/18 Atorvastatin Calcium [Lipitor 40 mg Tablet] 40 mg PO QHS 10/27/18 Hydrochlorothiazide [Hydrodiuril 25 mg Tablet] 25 mg PO QAM 10/27/18 Indomethacin [Indocin 25 Mg Capsule] 25 mg PO DAILYP PRN 10/27/18 Lisinopril [Prinivil] 20 mg PO DAILY 10/27/18 Metoprolol Succinate [Toprol Xl] 25 mg PO DAILY 10/27/18 Omeprazole 20 mg PO DAILY 10/27/18 History of Present Illness History of Present Illness: CRISTIAN BOYD is a 62 year old male with a past medical history of hypertension, hyperlipidemia, GERD, gout, obesity, and alcohol dependence who presents to the emergency department today with report of abnormal labs; patient had routine lab work drawn at his primary care provider's office. He was contacted today and told to report to the emergency department due to low platelets. On presentation to the emergency department the patient was found to have stable vital signs, Hemoglobin 13.9/hematocrit 41.2, and platelet count of 4 (platelet count at PCP office 5, repeat 4), normal coags, unremarkable chemistry, and urinalysis positive for moderate blood. Head CT is benign. Emergency department provider spoke with Dr. Estrada who advised against platelet transfusion at this time as this can paradoxically worsen ITP; instead advises Solu-Medrol 60 mg twice daily. Patient is referred to the hospitalist service for admission and management of the above-stated complaints with hematology consulting. Hospital Course Hospital Course: This is 62 years old male patient with past medical history of hypertension, hyperlipidemia, morbid obesity and alcohol dependence referred from his PCP office for abnormal lab. His blood drawn for routine basic lab work revealed platelet count of 4. Patient denies any GI bleeding no hematuria. But he has intermittent bleeding under his skin. On examination he also has large ecchymosis over his left deltoid area. His other blood elements are within normal limits. His platelet count slightly increased to 7 yesterday and today his platelets 24. Patient has been on Solu-Medrol. Dr. Estrada cleared him for discharge if his platelet counts greater than 20 cleared him for discharge and send him home with prednisone 1 mg/kg and follow-up with him coming Tuesday. This morning I seen patient sitting by the bedside. He is aw mark anthony alert oriented he is not in pain or distress. Patient advised to keep up his upcoming appointment with his oncologist. Physical Exam Vital Signs: Temp Pulse Resp BP Pulse Ox 97.4 F 62 16 143/78 H 100 10/28/18 23:13 10/28/18 23:13 10/28/18 23:13 10/28/18 23:13 10/28/18 23:13 Intake & Output 10/28/18 10/29/18 10/30/18 06:59 06:59 06:59 Intake Total 1275 Balance 1275 Weight 123 kg 123 kg General appearance: PRESENT: no acute distress Head exam: PRESENT: atraumatic Eye exam: PRESENT: conjunctiva pink Neck exam: ABSENT: carotid bruit, JVD, lymphadenopathy, thyromegaly Respiratory exam: PRESENT: clear to auscultation samantha. ABSENT: rales, rhonchi, wheezes Cardiovascular exam: PRESENT: RRR. ABSENT: diastolic murmur, rubs, systolic murmur GI/Abdominal exam: PRESENT: normal bowel sounds, soft. ABSENT: distended, guarding, mass, organolmegaly, rebound, tenderness Neurological exam: PRESENT: alert, awake, oriented to time, oriented to situation Psychiatric exam: PRESENT: normal mood Skin exam: PRESENT: petechiae Results Laboratory Results: 10/29/18 04:15 10/27/18 13:50 10/29/18 04:15 WBC 16.9 H RBC 4.64 Hgb 13.3 L Hct 39.9 MCV 86 MCH 28.7 MCHC 33.4 RDW 13.4 Plt Count 24 L* D Impressions: Head CT 10/27/18 14:36 IMPRESSION: No acute intracranial pathology. EVIDENCE OF ACUTE STROKE: NO. Qualifiers - * PATIENT BEING DISCHARGED WITH ANY OF THE FOLLOWING DIAGNOSIS: No Acute Heart Failure Is this a Heart Failure Patient?: No
[2018-10-29] MEDS ORDERED: AMLODIPINE BESYLATE 10 MG TABLET PO SCH (10:00)
[2018-10-29 10:18] VITALS: BP 138/71
[2018-10-31 11:46] LABS: PATH REVIEW PATHOLOGIST REVIEWED
== END 2018-10-29 10:31 | disposition home or self-care (01) | DRG 813 ==
LOC: ER 12:44 → EH 15:59 → 5 19:14
PROVIDERS: ADMIT Internal Medicine; ATTEND Internal Medicine
DX: D69.3 Immune thrombocytopenic purpura (principal); I10 Essential (primary) hypertension; E78.5 Hyperlipidemia, unspecified; F10.20 Alcohol dependence, uncomplicated; E66.01 Morbid (severe) obesity due to excess calories; K21.9 Gastro-esophageal reflux disease without esophagitis; M10.9 Gout, unspecified; Z79.899 Other long term (current) drug therapy; Z90.49 Acquired absence of other specified parts of digestive tract; Z88.2 Allergy status to sulfonamides
CPT/HCPCS: 36415; 70450; 80053; 81001; 83036; 85025; 85027; 85610; 85730; 86850; 86900; 86901; 99284; J2930; J3490

== ENCOUNTER → 2020-05-12 | Outpatient (CLI) | payer MEDICARE, OTHER ==
--- NOTE | 2020-05-12 13:31 | RADIOLOGY REPORT (SQ) ---
EXAM DESCRIPTION: CHEST 2 VIEWS IMAGES COMPLETED DATE/TIME: 05/12/2020 1:08 pm REASON FOR STUDY: ASYMPTOMATIC MICROSCOPIC HEMATURIA COMPARISON: None. EXAM PARAMETERS: NUMBER OF VIEWS: two views TECHNIQUE: Digital Frontal and Lateral radiographic views of the chest acquired. RADIATION DOSE: NA LIMITATIONS: none FINDINGS: LUNGS AND PLEURA: No opacities, masses or pneumothorax. No pleural effusion. MEDIASTINUM AND HILAR STRUCTURES: No masses or contour abnormalities. HEART AND VASCULAR STRUCTURES: Heart normal size. No evidence for failure. BONES: No acute findings. HARDWARE: None in the chest. OTHER: No other significant finding. IMPRESSION: NO ACUTE RADIOGRAPHIC FINDING IN THE CHEST. TECHNICAL DOCUMENTATION: JOB ID: [id number] 2010 [facility]- All Rights Reserved Reading location - IP/workstation name: [email or web address]
--- NOTE | 2020-05-12 13:42 | RADIOLOGY REPORT (SQ) ---
EXAM DESCRIPTION: CT ABD/PELVIS NO ORAL OR IV IMAGES COMPLETED DATE/TIME: 05/12/2020 1:08 pm REASON FOR STUDY: ASYMPTOMATIC MICROSCOPIC HEMATURIA R31.21 ASYMPTOMATIC MICROSCOPIC HEMATURIA COMPARISON: None. TECHNIQUE: CT scan of the abdomen and pelvis performed without intravenous or oral contrast. Images reviewed with lung, soft tissue, and bone windows. Reconstructed coronal and sagittal MPR images revi ewed. All images stored on PACS. All CT scanners at this facility use dose modulation, iterative reconstruction, and/or weight based d osing when appropriate to reduce radiation dose to as low as reasonably achievable (ALARA). [facility]: Dose Right [facility]: CareDose [facility]: Dose Right [facility]: Teradose 4D [facility]: Smart [facility] RADIATION DOSE: CT Rad equipment meets quality standard of care and radiation dose reduction techniq ues were employed. CTDIvol: 31.2 mGy. DLP: 1772 mGy-cm.mGy. LIMITATIONS: None. FINDINGS: LOWER CHEST: No significant findings. No nodules or infiltrates. NON-CONTRASTED LIVER, SPLEEN, ADRENALS: No significant finding. PANCREAS: No masses. No peripancreatic inflammatory changes. GALLBLADDER: Surgically absent. RIGHT KIDNEY AND URETER: 2 small cysts are seen. There is a 2 x 3 cm hypodense lesion that contains a small amount of fat. This is seen on image 46. No suspicious masses. Assessment limited by lack o f IV contrast. No significant calcifications. No hydronephrosis or hydroureter. LEFT KIDNEY AND URETER: No suspicious masses. Assessment limited by lack of IV contrast. No signifi cant calcifications. No hydronephrosis or hydroureter. AORTA AND RETROPERITONEUM: No aneurysm. No retroperitoneal masses or adenopathy. BOWEL AND PERITONEAL CAVITY: No obvious masses or inflammatory changes. No free fluid. APPENDIX: Normal. PELVIS, BLADDER, AND ABDOMINAL WALL:No abnormal masses. No free fluid. Bladder normal. BONES: Degenerative joint disease in the hips, left more than right. OTHER: No other significant finding. IMPRESSION: 1. There is 2 x 3 cm hypodense lesion containing a small amount of fat in the right kid shaggy. This is suggestive of an angiomyolipoma. 2. No urinary calculi are seen. 3. Degenerative joint disease in both hips. COMMENT: Quality ID # [id number]: Final reports with documentation of one or more dose reduction techniques (e.g., Automated exposure control, adjustment of the mA and/or kV according to patient size, use of iterative reconstruction technique) TECHNICAL DOCUMENTATION: JOB ID: [id number] 2010 [employer]- All Rights Reserved Reading location - IP/workstation name: [email or web address]
== END ==
LOC: RAD 12:39
PROVIDERS: ATTEND Nurse Practitioner Family
DX: R31.21 Asymptomatic microscopic hematuria (principal); N28.9 Disorder of kidney and ureter, unspecified; R06.02 Shortness of breath; M16.0 Bilateral primary osteoarthritis of hip
CPT/HCPCS: 71046; 74176